=== PATIENT | male | born 1975 | race Caucasian/White ===

== ENCOUNTER → 2022-08-06 | Outpatient (CLI) | payer BC ==
--- NOTE | 2022-08-06 09:34 | XR ---
EXAMINATION TYPE: XR cervical spine limited DATE OF EXAM: 08/06/2022 9:16 AM INDICATION: Patient age:Male; 47 years old; Reason for study: M25.511; COMPARISON: None TECHNIQUE: The cervical spine was imaged in frontal, lateral, odontoid. FINDINGS: The osseous structures show normal alignment without evidence of an acute fracture. There are small o steophytes noted throughout the cervical spine on the anterior and lateral aspects of the vertebral b odies. The intervertebral disk spaces are narrowed at multiple levels Pedicles are intact. Soft tiss ues are within normal limits. The odontoid appears intact. IMPRESSION: 1. No fracture or dislocation. 2. Mild degenerative disc disease changes of the cervical spine.
--- NOTE | 2022-08-06 09:52 | XR ---
EXAMINATION TYPE: XR shoulder limited RT DATE OF EXAM: 08/06/2022 9:16 AM INDICATION: Patient age:Male; 47 years old; Reason for study: M25.511; COMPARISON: None TECHNIQUE: The right shoulder was examined in frontal and scapular Y projections. FINDINGS: No evidence of acute osseous pathology, joint dislocation, or soft tissue swelling. The remaining por tions of the visualized chest are unremarkable. Degeneration of the acromion and distal clavicle. IMPRESSION: 1. No acute osseous pathology. 2. Mild right AC joint osteoarthrosis.
== END | disposition home or self-care (01) ==
LOC: RADXRMAIN 08:39
PROVIDERS: ATTEND Nurse Practitioner Family
DX: M19.011 Primary osteoarthritis, right shoulder (principal); M50.30 Other cervical disc degeneration, unspecified cervical region
CPT/HCPCS: 72040